=== PATIENT | male | born 1960 | race Caucasian/White ===

== ENCOUNTER 2017-01-05 07:02 | Emergency (ER) | payer BC ==
[2017-01-05 07:16] VITALS: BP 139/72
--- NOTE | 2017-01-05 07:41 | UC ---
Pamela Topete Alok, scribed for Lata Domínguez MD on 01/05/17 at 0732 . Throat Pain/Nasal Eren HPI - HPI Summary HPI Summary: 56 y/o male with PMHx of COPD presents to the with c/o URI-like symptoms including nasal and head congestion settling in chest chest since this weekend. Pt reports a shallow, tickling cough both beginning 4 days ago. Pt states his symptoms feel similar to his last sinus infection some time ago. Sputum from productive cough is described as yellow-white while sputum from nasal is described as clear-yellow. Pt reports taking 2 Mucinex as well as Nyquil for his symptoms which did not better/worsen his symptoms. Pt states his fluid and food intact have been normal. Pt also reports SOB with wheezing that improves with nebs. Pt has been taking nebs 2 times a day. . Pt denies any N/V, vision changes, and has no known allergies. No one else is sick at the pts home and he denies any recent travel. 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 + flu vaccine. No wilkinson, vision changes. No fevers, chills, rash - History of Current Complaint Chief Complaint: UCRespiratory Stated Complaint: SINUS ISSUE Time Seen by Provider: 01/05/17 07:19 Hx Obtained From: Patient Onset/Duration: Gradual Onset Severity: Mild Cough: Productive Associated Signs & Symptoms: Positive: Wheezing, Sinus Discomfort, Nasal Discharge. Negative: Fever, Vomiting, Rash - Allergies/Home Medications Allergies/Adverse Reactions: Allergies Allergy/AdvReac Type Severity Reaction Status Date / Time No Known Allergies Allergy Verified 03/20/14 11:40 Home Medications: Home Medications Montelukast Sodium TAB* [Singulair TAB*] 10 mg PO BEDTIME 01/05/17 [History Confirmed 01/05/17] PMH/Surg Hx/FS Hx/Imm Hx Endocrine History Of: Denies: Diabetes, Thyroid Disease Cardiovascular History Of: Denies: Cardiac Disorders, Hypertension, Myocardial Infarction Respiratory History Of: Reports: COPD, Asthma GI/ History Of: Denies: Ulcer - Surgical History Surgical History: Yes Surgery Procedure, Year, and Place: cholecystectomy - Social History Occupation: Employed Full-time Alcohol Use: Rare Substance Use Type: None Smoking Status (MU): Former Smoker Type: Cigarettes Review of Systems Constitutional: Negative Skin: Negative Eyes: Negative ENT: Nasal Discharge Respiratory: Shortness Of Breath, Cough Cardiovascular: Negative Gastrointestinal: Negative Genitourinary: Negative Motor: Negative Neurovascular: Negative Musculoskeletal: Negative Neurological: Negative Psychological: Negative All Other Systems Reviewed And Are Negative: Yes Physical Exam Triage Information Reviewed: Yes Completion Of Physical Exam Limited Due To: Altered Mental Status Appearance: Well-Appearing, No Pain Distress, Well-Nourished Vital Signs: Initial Vital Signs Temp 98.6 F 01/05/17 07:09 Pulse 93 01/05/17 07:09 Resp 18 01/05/17 07:09 BP 139/72 01/05/17 07:09 Pulse Ox 96 01/05/17 07:09 Vital Signs Reviewed: Yes Eye Exam: Normal Eyes: Positive: Conjunctiva Clear ENT: Positive: Nasal drainage. Negative: Pharynx normal, TMs normal - turbinates inflammed and boggy left ear + fluid, no erythema, no retraction mmmoist + PND - thick yellow + TTP sinuses max R>L; frontal Dental Exam: Normal Neck exam: Normal Neck: Positive: Supple, Nontender, No Lymphadenopathy Respiratory Exam: Normal Respiratory: Positive: Chest non-tender, Lungs clear, Normal breath sounds Cardiovascular Exam: Normal Cardiovascular: Positive: RRR, No Murmur Abdominal Exam: Normal Abdomen Description: Positive: Nontender, No Organomegaly, Soft Musculoskeletal Exam: Normal Neurological Exam: Normal Neurological: Positive: Alert Psychological Exam: Normal Skin Exam: Normal Throat Pain/Nasal Course/Dx - Course Course Of Treatment: PT with a h/o COPD presents with sinus and head congestion , PND, productive yellow cough. VSS. Exam reveal sinus congestion and bogginess. Will treat for sinusitis and early bronchitis. d/w pt secretion hygeine. PCP f/u. increased fluids and neb use. Augmentin, flonase. return prn. Pt in in agreement with plan - Differential Dx/Diagnosis Provider Diagnoses: sinusitis, uri cough Discharge - Discharge Plan Condition: Stable Disposition: HOME Prescriptions: Amoxicillin/Clavulanate TAB* [Augmentin TAB 875*] 875 mg PO BID #20 tab Fluticasone NASAL SPRAY 50MCG* [Flonase NASAL SPRAY 50MCG*] 1 spray BOTH NARES DAILY #1 btl Patient Education Materials: Sinusitis (ED) Referrals: Non Staff,Doctor [Primary Care Provider] - Additional Instructions: - Stay well hydrated. Drink plenty of non-alcoholic, non-caffinated beverages - Take antibioitcs 2 times a day as prescribed until gone. After you have been on antibiotics for 2 days, change your toothbrush and your pillowcase - Okay to use nasal spray daily as instructed - It is recommended you use your nebulizer 3 times a day - Okay to use a decongestant such as Sudafed, Claritin-D, Batool-D -Contact your doctor to schedule a follow-up appointment early next week. Contact your doctor or return with questions or concerns The documentation as recorded by the Pamela arroyo Alok accurately reflects the service I personally performed and the decisions made by me, Lata Domínguez MD.
== END 2017-01-05 07:42 | disposition home or self-care (01) ==
LOC: UCEAST 07:02
DX: J32.9 Chronic sinusitis, unspecified (principal); J06.9 Acute upper respiratory infection, unspecified; Z90.49 Acquired absence of other specified parts of digestive tract; Z87.891 Personal history of nicotine dependence
CPT/HCPCS: 99212; G0463

== ENCOUNTER 2017-03-12 10:21 | Emergency (ER) | payer BC ==
[2017-03-12 11:06] VITALS: BP 139/76
--- NOTE | 2017-03-12 11:19 | UC ---
Lower Extremity/Ankle HPI - HPI Summary HPI Summary: red warm swollen cord inside of right thigh--no know injury - History of Current Complaint Chief Complaint: UCLowerExtremity Stated Complaint: RED PAINFUL AREA ON UPPER LEG Time Seen by Provider: 03/12/17 11:08 Hx Obtained From: Patient Onset/Duration: Sudden Onset, Lasting Days - 1, Still Present Severity Initially: Mild Severity Currently: Mild Pain Intensity: 4 Pain Scale Used: 0-10 Numeric Aggravating Factor(s): Nothing Alleviating Factor(s): Nothing Able to Bear Weight: Yes - Allergies/Home Medications Allergies/Adverse Reactions: Allergies Allergy/AdvReac Type Severity Reaction Status Date / Time No Known Allergies Allergy Verified 03/12/17 11:06 Home Medications: Home Medications Albuterol HFA INHALER* [Ventolin HFA Inhaler*] 2 puff INH Q4HR PRN 03/12/17 [ History Confirmed 03/12/17] PMH/Surg Hx/FS Hx/Imm Hx Previously Healthy: No - superficial blood clots in lower legs Endocrine History Of: Denies: Diabetes, Thyroid Disease Cardiovascular History Of: Denies: Cardiac Disorders, Hypertension, Myocardial Infarction Respiratory History Of: Reports: COPD, Asthma GI/ History Of: Denies: Ulcer - Surgical History Surgical History: Yes Surgery Procedure, Year, and Place: cholecystectomy - Family History Known Family History: Positive: Other Family History: phlebitis - Social History Occupation: Employed Full-time Lives: With Family Alcohol Use: None Substance Use Type: None Smoking Status (MU): Former Smoker Type: Cigarettes When Did the Patient Quit Smoking/Using Tobacco: 2006 Household Exposure Type: Cigarettes Review of Systems Constitutional: Negative Skin: Negative Eyes: Negative ENT: Negative Respiratory: Negative Cardiovascular: Negative Gastrointestinal: Negative Genitourinary: Negative Motor: Negative Neurovascular: Negative Musculoskeletal: Negative, Myalgia - inside of right thigh Neurological: Negative Psychological: Negative All Other Systems Reviewed And Are Negative: Yes Physical Exam Triage Information Reviewed: Yes Appearance: Well-Appearing, No Pain Distress, Well-Nourished Vital Signs: Initial Vital Signs Temp 97.9 F 03/12/17 11:02 Pulse 73 03/12/17 11:02 Resp 14 03/12/17 11:02 BP 139/76 03/12/17 11:02 Pulse Ox 95 03/12/17 11:02 Vital Signs Reviewed: Yes Eye Exam: Normal Eyes: Positive: Conjunctiva Clear ENT Exam: Normal ENT: Positive: Normal ENT inspection, Hearing grossly normal. Negative: Nasal congestion, Nasal drainage, Trismus, Muffled/hoarse voice Dental Exam: Normal Neck exam: Normal Neck: Positive: Supple, Nontender, No Lymphadenopathy Respiratory Exam: Normal Respiratory: Positive: Chest non-tender, Lungs clear, Normal breath sounds, No respiratory distress, No accessory muscle use Cardiovascular Exam: Normal Cardiovascular: Positive: RRR, No Murmur, Pulses Normal, Brisk Capillary Refill Musculoskeletal Exam: Normal Musculoskeletal: Positive: Strength Intact, ROM Intact, Edema @ - chronic in BLE Neurological Exam: Normal Neurological: Positive: Alert, Muscle Tone Normal Psychological Exam: Normal Skin Exam: Normal Lower Extremity Course/Dx - Course Course Of Treatment: transfer to [facility] for further evaluation/US - Differential Dx/Diagnosis Differential Diagnosis/HQI/PQRI: Cellulitis, DVT, Phlebitis Provider Diagnoses: Swelling inner right thigh - Physician Notifications Discussed Patient Care With: Paulie LAY Time Discussed With Above Provider: 11:30 Instructed by Provider To: Transfer Discharge - Discharge Plan Condition: Stable Disposition: AGAINST MEDICAL ADVICE Referrals: Non Staff,Doctor [Primary Care Provider] -
== END 2017-03-12 11:21 | disposition left against medical advice (07) ==
LOC: UCEAST 10:21
DX: M79.89 Other specified soft tissue disorders (principal); J44.9 Chronic obstructive pulmonary disease, unspecified; Z87.891 Personal history of nicotine dependence
CPT/HCPCS: 99212; G0463

== ENCOUNTER 2017-03-12 11:42 | Emergency (ER) | payer BC ==
[2017-03-12 12:30] VITALS: BP 142/76
--- NOTE | 2017-03-12 13:39 | RAD ---
INDICATION: Right thigh swelling and pain. COMPARISON: Correlation is made with a prior study from March 02, 2013 TECHNIQUE: Multiple real-time, color flow and Doppler tracings of the right lower extremity were obtained. FINDINGS: The common femoral, femoral, profunda femoral and popliteal veins all demonstrate normal compressibility, augmentation with compression and phasic response with respiration. The posterior tibial and peroneal veins demonstrate normal compressibility and augmentation with compression. There is occlusive thrombus present within the greater saphenous vein from the proximal to distal thigh. IMPRESSION: SUPERFICIAL VENOUS THROMBUS WITHIN THE GREATER SAPHENOUS VEIN.
[2017-03-12] MEDS ORDERED: Enoxaparin(*) 100 MG/ML SYR SUBCUT ONE (13:53)
--- NOTE | 2017-03-12 14:05 | ED ---
Lower Extremity - HPI Summary HPI Summary: Patient is referred from [facility] for right upper thigh redness, and pain since yesterday. He has a history of DVT in his lower extremities and worries this has occurred again. He has pain with walking. No SOB, CP, swelling or N/T in the extremity. No fever or chills, and no known trauma. - History of Current Complaint Chief Complaint: EDExtremityLower Stated Complaint: RIGHT LEG SWELLING, COMMING FROM Time Seen by Provider: 03/12/17 12:16 Hx Obtained From: Patient Mechanism Of Injury: Unknown Onset of Pain: Hours Onset/Duration: Still Present Severity Initially: Mild Severity Currently: Mild Pain Intensity: 3 Timing: Constant Location: Is Discrete @ - right upper thigh Character Of Pain: Aching Associated Signs And Symptoms: Positive: Redness Aggravating Factor(s): Standing Alleviating Factor(s): Nothing Able to Bear Weight: Yes - Allergies/Home Medications Allergies/Adverse Reactions: Allergies Allergy/AdvReac Type Severity Reaction Status Date / Time No Known Allergies Allergy Verified 03/12/17 11:06 PMH/Surg Hx/FS Hx/Imm Hx Endocrine/Hematology History: Reports: Hx Anticoagulant Therapy Denies: Hx Diabetes, Hx Thyroid Disease Cardiovascular History: Reports: Hx Angina, Hx Deep Vein Thrombosis Denies: Hx Coronary Artery Disease, Hx Hypercholesterolemia, Hx Hypertension , Hx Myocardial Infarction Respiratory History: Reports: Hx Asthma, Hx Chronic Obstructive Pulmonary Disease (COPD) GI History: Denies: Hx Ulcer - Surgical History Surgery Procedure, Year, and Place: cholecystectomy Infectious Disease History: No Infectious Disease History: Denies: Hx Hepatitis, Hx Human Immunodeficiency Virus (HIV), History Other Infectious Disease, Traveled Outside the [place] in Last 30 Days - Family History Known Family History: Positive: None - Social History Occupation: Employed Full-time Lives: With Family Alcohol Use: None Substance Use Type: Reports: None Smoking Status (MU): Former Smoker Type: Cigarettes Review of Systems Negative: Fever, Chills Positive: Myalgia - with erythema All Other Systems Reviewed And Are Negative: Yes Physical Exam Triage Information Reviewed: Yes Vital Signs On Initial Exam: Initial Vitals Temp Pulse Resp BP Pulse Ox 97.4 F 82 18 160/87 98 03/12/17 11:48 03/12/17 11:48 03/12/17 11:48 03/12/17 11:48 03/12/17 11:48 Vital Signs Reviewed: Yes Appearance: Positive: Well-Appearing, Pain Distress, Obese Skin: Positive: Warm, Skin Color Reflects Adequate Perfusion, Dry, Soft, Erythema @ - right thigh eythema corresponding with saphenous vein Head/Face: Positive: Normal Head/Face Inspection Eyes: Positive: EOMI, VALORIE, Conjunctiva Clear Respiratory/Lung Sounds: Positive: Clear to Auscultation, Breath Sounds Present Cardiovascular: Positive: RRR Musculoskeletal: Positive: Strength/ROM Intact. Negative: Edema Left, Edema Right Neurological: Positive: Sensory/Motor Intact, Alert, Oriented to Person Place, Time, NV Bundle Intact Distally, Normal Gait Psychiatric: Positive: Affect/Mood Appropriate AVPU Assessment: Alert Diagnostics - Vital Signs Vital Signs Temp Pulse Resp BP Pulse Ox 03/12/17 12:27 99.1 F 75 18 142/76 96 03/12/17 11:48 97.4 F 82 18 160/87 98 - Laboratory Lab Statement: Any lab studies that have been ordered have been reviewed, and results considered in the medical decision making process. - Ultrasound No standard instances Ultrasound Interpretation: Positive (See Comments) Ultrasound Interpretation Completed By: Radiologist - Superficial vein thrombosis right saphenous vein. Lower Extremity Course/Dx - Diagnoses Differential Diagnosis/HQI/PQRI: Positive: Cellulitis, Contusion, DVT, Gout, Infection, Phlebitis, Tendonitis, Tenosynovitis Provider Diagnoses: Acute superficial venous thrombosis of right lower extremity Discharge - Discharge Plan Condition: Stable Disposition: HOME Prescriptions: Enoxaparin(*) [Lovenox(*)] 100 mg SUBCUT Q12HR #10 syringe Enoxaparin(*) [Lovenox(*)] 40 mg SUBCUT Q12HR #10 syringe Patient Education Materials: Superficial Thrombophlebitis (ED) Additional Instructions: Please follow-up with your primary care provider in the next 1-2 days. Use the medication as prescribed until instructed otherwise. Return to the emergency department if symptoms worsen.
== END 2017-03-12 14:20 | disposition home or self-care (01) ==
LOC: ED 11:42
DX: I82.811 Embolism and thrombosis of superficial veins of right lower extremity (principal); M79.1 Myalgia; Z87.891 Personal history of nicotine dependence
CPT/HCPCS: 99282; J1650

== ENCOUNTER 2017-12-15 06:55 | Emergency (ER) | payer SELFPAY ==
[2017-12-15 08:05] LABS: INR 1.87 (0.77-1.02)
[2017-12-15 08:29] VITALS: BP 143/71
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
== END 2017-12-15 08:28 | disposition home or self-care (01) ==
LOC: ED 06:55
DX: M25.512 Pain in left shoulder (principal); S60.211A Contusion of right wrist, initial encounter; V89.2XXA Person injured in unspecified motor-vehicle accident, traffic, initial encounter; Y92.9 Unspecified place or not applicable; Z79.01 Long term (current) use of anticoagulants; Z87.891 Personal history of nicotine dependence; J44.9 Chronic obstructive pulmonary disease, unspecified; Z86.718 Personal history of other venous thrombosis and embolism
CPT/HCPCS: 36415; 85610; 99282

== ENCOUNTER 2018-05-27 18:24 | Emergency (ER) | payer BC ==
--- NOTE | 2018-05-27 19:30 | ED ---
Lower Extremity - HPI Summary HPI Summary: This is scribe Lashaandre Santiago documenting for attending Dr. Emmanuel Arteaga MD. A 58 y/o male presents to ED c/o soreness, tenderness and redness under his knee coupled with pain reaching 3/10 in severity. As per triage, "Pt c/o L leg pain and redness. Pt states hx DVT's and has just been taken off of blood thinners". According to the patient, two months ago the patient was taken off Warfarin which is when he noted soreness and tenderness under his left knee and swelling in legs. He noted that he thromboses easily. He denies any CP, nausea or vomiting, however he does have slight SOB as he has COPD. PMHx of COPD and psoriasis. 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 - History of Current Complaint Chief Complaint: EDExtremityLower Stated Complaint: LT LEG PAIN Time Seen by Provider: 05/27/18 19:12 Hx Obtained From: Patient Mechanism Of Injury: Unknown Onset/Duration: Still Present Severity Initially: Moderate Severity Currently: Moderate Pain Intensity: 3 Pain Scale Used: 0-10 Numeric Timing: Constant Location: Is Discrete @ - Under left knee Associated Signs And Symptoms: Positive: Swelling, Redness, Knee Pain - Under knee pain Aggravating Factor(s): Nothing Alleviating Factor(s): Nothing Able to Bear Weight: Yes - Allergies/Home Medications Allergies/Adverse Reactions: Allergies Allergy/AdvReac Type Severity Reaction Status Date / Time No Known Allergies Allergy Verified 12/15/17 07:21 PMH/Surg Hx/FS Hx/Imm Hx Endocrine/Hematology History: Reports: Hx Anticoagulant Therapy Denies: Hx Diabetes, Hx Thyroid Disease Cardiovascular History: Reports: Hx Angina, Hx Deep Vein Thrombosis Denies: Hx Coronary Artery Disease, Hx Hypercholesterolemia, Hx Hypertension , Hx Myocardial Infarction Respiratory History: Reports: Hx Asthma, Hx Chronic Obstructive Pulmonary Disease (COPD) GI History: Denies: Hx Ulcer - Surgical History Surgery Procedure, Year, and Place: cholecystectomy Infectious Disease History: No Infectious Disease History: Denies: Hx Hepatitis, Hx Human Immunodeficiency Virus (HIV), History Other Infectious Disease, Traveled Outside the [place] in Last 30 Days - Family History Known Family History: Negative: Cardiac Disease Family History: [place] - Social History Alcohol Use: None Substance Use Type: Reports: None Smoking Status (MU): Former Smoker Type: Cigarettes Review of Systems Negative: Fever Negative: Chest Pain Positive: Shortness Of Breath - Slight due to COPD Negative: Vomiting, Nausea Positive: Other - POSITIVE: Tenderness and soreness under left knee, swelling in legs. Positive: Other - POSITIVE: Redness under left knee All Other Systems Reviewed And Are Negative: Yes Physical Exam - Summary Physical Exam Summary: VITAL SIGNS: Reviewed. GENERAL: Patient is a well-developed and nourished (MALE OR FEMALE) who is lying comfortable in the stretcher. Patient is not in any acute respiratory distress. HEAD AND FACE: No signs of trauma. No ecchymosis, hematomas or skull depressions. No sinus tenderness. EYES: PERRLA, EOMI x 2, No injected conjunctiva, no nystagmus. EARS: Hearing grossly intact. Ear canals and tympanic membranes are within normal limits. MOUTH: Oropharynx within normal limits. NECK: Supple, trachea is midline, no adenopathy, no JVD, no carotid bruit, no c- spine tenderness, neck with full ROM. CHEST: Symmetric, no tenderness at palpation LUNGS: Clear to auscultation bilaterally. No wheezing or crackles. CVS: Regular rate and rhythm, S1 and S2 present, no murmurs or gallops appreciated. ABDOMEN: Soft, non-tender. No signs of distention. No rebound no guarding, and no masses palpated. Bowel sounds are normal. EXTREMITIES: FROM in all major joints, no edema, no cyanosis or clubbing. Tenderness in the left distal thigh with slight erythema +1. NEURO: Alert and oriented x 3. No acute neurological deficits. Speech is normal and follows commands. SKIN: Skin plax on left forearm with desquamation secondary to his psoriasis. Triage Information Reviewed: Yes Vital Signs On Initial Exam: Initial Vitals Temp Pulse Resp BP Pulse Ox 97.9 F 95 18 165/73 94 05/27/18 18:26 05/27/18 18:26 05/27/18 18:26 05/27/18 18:26 05/27/18 18:26 Vital Signs Reviewed: Yes Diagnostics - Vital Signs Vital Signs Temp Pulse Resp BP Pulse Ox 05/27/18 18:26 97.9 F 95 18 165/73 94 - Laboratory Result Diagrams: 05/27/18 19:29 05/27/18 19:29 Lab Statement: Any lab studies that have been ordered have been reviewed, and results considered in the medical decision making process. - Ultrasound No standard instances Ultrasound Interpretation Completed By: Radiologist - 1. No left lower extremity DVT. 2. Great saphenous vein occlusion at the distal thigh and knee. ED physician reviewed this radiology report. Lower Extremity Course/Dx - Course Assessment/Plan: This patient is a 50-year-old male who presents to the emergency department with a chief complaint of left lower extremity pain especially in the left thigh area. The patient has history of DVT therefore he decided to come to the emergency department to rule out DVT. Test results without any significant abnormality. Ultrasound of the left lower history is negative for DVT. Therefore at this time had a will be discharging the patient home with follow-up with primary care physician. The patient is hemodynamically stable alert and 3. I discussed all the findings and test results with the patient. Patient was instructed to return to the emergency room immediately if any of the symptoms return or worsens. Plan of care was discussed with the patient and understands and agrees. All questions were answered at patient satisfaction. There were no further complaints or concerns. Lung exam before discharge: CTA B/L. Good air exchange. No wheezing or crackles heard. CVS: S1 and S2 present. No murmurs appreciated. Patient is alert and oriented x 3. Patient is hemodynamically stable. Patient will be discharged home with follow up PCP in the next 2-3 days - Diagnoses Differential Diagnosis/HQI/PQRI: Positive: Bursitis, Cellulitis, DVT Provider Diagnoses: Lower extremity pain Discharge - Sign-Out/Discharge Documenting (check all that apply): Patient Departure - DISCHARGE - Discharge Plan Condition: Stable Disposition: HOME Patient Education Materials: Leg Pain (ED) Referrals: Alpesh NEWMAN,Jose Raymundo [Primary Care Provider] - Additional Instructions: FOLLOW UP WITH YOUR PRIMARY CARE PROVIDER WITHIN ONE WEEK FOR HIGH BLOOD PRESSURE NOTED TODAY.RETURN TO THE ED FOR ANY WORSENING OR NEW SYMPTOMS.
[2018-05-27 19:38] LABS: ABS Basophils 0.1 10^3/ul (0-0.2); ABS Eosinophils 0.2 10^3/ul (0-0.6); ABS Lymphocytes 1.2 10^3/ul (1.0-4.8); ABS Monocytes 0.6 10^3/ul (0-0.8); ABS Neutrophils 3.8 10^3/ul (1.5-7.7); ABS Nucleated RBC 0 10^3/ul; Eosinophil % 3.4 % (0-6); Hematocrit 42 % (42-52); Hemoglobin 14.7 g/dl (14.0-18.0); Lymphocyte % 19.9 % (25-47); Mean Corpuscular HGB Conc 35 g/dl (31-36); Mean Corpuscular Hemoglobin 31 pg (27-31); Mean Corpuscular Volume 90 fL (80-94); Mean Platelet Volume 8.1 um3 (7.4-10.4); Nucleated Red Blood Cells % 0.1; Platelet Count 192 10^3/ul (150-450); Red Blood Count 4.68 10^6/ul (4.00-5.40); Red Cell Distribution Width 14 % (10.5-15); White Blood Count 5.9 10^3/ul (3.5-10.8)
[2018-05-27 20:00] LABS: Uric Acid 6.3 mg/dL (4.4-7.6)
[2018-05-27 21:00] LABS: EGFR Non-African American 72.5 (>60)
--- NOTE | 2018-05-27 21:21 | RAD ---
INDICATION: Pain and swelling. COMPARISON: April 05, 2018 TECHNIQUE: Duplex interrogation of the Lowerextremity was performed. FINDINGS: Deep veins: The common femoral, great saphenous, profunda femoris, proximal, mid, and distal deep femoral, popliteal, posterior tibial, and peroneal veins are patent. There is normal compressibility, augmentation, and phasic flow. Superficial veins: There is occlusion of the great saphenous at the distal thigh and knee. Popliteal fossa:There is no evidence of a popliteal cyst. Soft tissues:There are no soft tissue abnormalities. IMPRESSION: NO EVIDENCE OF DEEP VENOUS THROMBOSIS. SUPERFICIAL THROMBOPHLEBITIS
[2018-05-27 21:30] VITALS: BP 148/77
== END 2018-05-27 21:27 | disposition home or self-care (01) ==
LOC: ED 18:24
DX: M25.562 Pain in left knee (principal); R06.02 Shortness of breath; Z87.891 Personal history of nicotine dependence
CPT/HCPCS: 36415; 80053; 84550; 85025; 86140; 99282

== ENCOUNTER 2018-09-15 16:24 | Emergency (ER) | payer BC ==
[2018-09-15 16:43] VITALS: BP 122/75
--- NOTE | 2018-09-15 17:07 | UC ---
Throat Pain/Nasal Eren HPI - HPI Summary HPI Summary: 58 y/o female presents to the urgent care c/o Rt side face congestion, pressure and sinus pain w/ Rt ear pain for the past week. Pt states PMHX of COPD and he feels his symptoms are not improving and now producing a yellowish nasal discharge and +PND w/ a dry cough. Pain is 5/10. Pt is taking Mucinex sinus PO w/o any improvement. Pt denies fever, dizziness, SOB, chest pain, abdominal pain ,N/v/D. - History of Current Complaint Chief Complaint: UCGeneralIllness Stated Complaint: SINUS COMPLAINT Time Seen by Provider: 09/15/18 16:58 Hx Obtained From: Patient Onset/Duration: Gradual Onset, Lasting Weeks - 1 week, Still Present, Worse Since - 3 days Severity: Mild Pain Intensity: 5 Pain Scale Used: 0-10 Numeric Cough: Nonproductive - dry Associated Signs & Symptoms: Positive: Sinus Discomfort, Nasal Discharge - Epiglottits Risk Factors Epiglottis Risk Factors: Negative - Allergies/Home Medications Allergies/Adverse Reactions: Allergies Allergy/AdvReac Type Severity Reaction Status Date / Time No Known Allergies Allergy Verified 09/15/18 16:44 PMH/Surg Hx/FS Hx/Imm Hx Previously Healthy: Yes Respiratory History: COPD Other History Of: Anticoagulant Therapy - Surgical History Surgical History: Yes Surgery Procedure, Year, and Place: cholecystectomy - Family History Known Family History: Positive: None - Pt denies FMHX Negative: Cardiac Disease Family History: [place] - Social History Occupation: Employed Full-time Lives: With Family Alcohol Use: None Substance Use Type: None Smoking Status (MU): Former Smoker Type: Cigarettes When Did the Patient Quit Smoking/Using Tobacco: 2006 Household Exposure Type: Cigarettes Review of Systems All Other Systems Reviewed And Are Negative: Yes Constitutional: Positive: Negative Skin: Positive: Negative Eyes: Positive: Negative ENT: Positive: Ear Ache - RT ear pain, Nasal Discharge, Sinus Congestion, Sinus Pain/Tenderness Respiratory: Positive: Cough - dry Cardiovascular: Positive: Negative Gastrointestinal: Positive: Negative Genitourinary: Positive: Negative Motor: Positive: Negative Neurovascular: Positive: Negative Musculoskeletal: Positive: Negative Neurological: Positive: Headache Psychological: Positive: Negative Is Patient Immunocompromised?: No Physical Exam - Summary Physical Exam Summary: Vitals: reviewed General: Well developed, well-nourished obese male patient with NAD. Head and face: Normocephalic and atraumatic, Positive tenderness over the frontal and maxillary sinuses.. Eyes: PERRLA, EOMI x 2. Normal conjunctiva. No eye discharge. ENT: RT ear canal clear, Rt TM injectect w/ erythema and mild fluid. LF external ear canal clear, LF TM with normal limits. Nose: edematous and erythematous nasal mucosa with with yellowish discharge and erythematous mucosa. Pharynx with erythema, no exudate. Neck: Supple, no JVD, no carotid bruits and no lymphadenopathy. Lungs: clear, no rales, no rhonchi, no wheezes. CVS: RRR, S1 and S2 present no murmurs or gallops appreciated. Abdomen: soft nontender with positive bowel sounds. Extremities: no edema noted. Neuro: WNL. Skin: warm and dry Triage Information Reviewed: Yes Vital Signs: Initial Vital Signs Temp 97.6 F 09/15/18 16:36 Pulse 92 09/15/18 16:36 Resp 16 09/15/18 16:36 BP 122/75 09/15/18 16:36 Pulse Ox 95 09/15/18 16:36 Throat Pain/Nasal Course/Dx - Course Course Of Treatment: 58 y/o female presents to the urgent care c/o Rt side face congestion, pressure and sinus pain w/ Rt ear pain for the past week. Pt states PMHX of COPD and he feels his symptoms are not improving and now producing a yellowish nasal discharge and +PND w/ a dry cough. Pain is 5/10. Pt is taking Mucinex sinus PO w/o any improvement. Pt denies fever, dizziness, SOB, chest pain, abdominal pain,N/v/D.Hx obtained. Pt w/ acute bacterial sinusitis and RT otitis media on examination. Pt with 1 week of symptoms getting worse. Pt Rx Augmentin PO and flonase nasal spray. Advised to continue takin MUcinex PO for cough. Discharge instructions explained to Pt. Advised to Return to the clinic or PCP if symptoms do not improve.Pt understood and agreed with plan of care. - Differential Dx/Diagnosis Differential Diagnosis/HQI/PQRI: Laryngitis, Otitis Media, Pharyngitis, Tonsillitis, URI Provider Diagnoses: 1- Acute bacterila sinusitis. 2- Rt otitis media Discharge - Sign-Out/Discharge Documenting (check all that apply): Patient Departure - D/c home All imaging exams completed and their final reports reviewed: No Studies - Discharge Plan Condition: Stable Disposition: HOME Prescriptions: Amoxicillin/Clavulanate TAB* [Augmentin TAB 875*] 875 mg PO BID #20 tab Fluticasone NASAL SPRAY 50MCG* [Flonase NASAL SPRAY 50MCG*] 2 spray BOTH NARES DAILY #1 btl Patient Education Materials: Sinusitis (ED), Ear Infection (ED) Referrals: Alpesh NEWMAN,Jose Raymundo [Primary Care Provider] - 3 Days Additional Instructions: 1- Please increase fluid intake and rest. take full course of antibiotic to avoid resistance 2-Use Flonase as directed to help drain fluid. Also buy saline drops to clear sinuses 3-contineu taking Mucinex and sinus to alleviates sinus congestion 4-Return to the clinic or PCP if symptoms do not improve in 3 days for further management and treatment - Billing Disposition and Condition Condition: STABLE Disposition: Home - Attestation Statements Provider Attestation: Per institutional requirements, I have reviewed the chart, however, I was not consulted specifically or made aware of this patient by the midlevel provider. I did not personally evaluate, interact with , or disposition this patient.
== END 2018-09-15 17:37 | disposition home or self-care (01) ==
LOC: UCEAST 16:24
DX: J01.90 Acute sinusitis, unspecified (principal); B96.89 Other specified bacterial agents as the cause of diseases classified elsewhere; H66.91 Otitis media, unspecified, right ear; J44.9 Chronic obstructive pulmonary disease, unspecified; Z87.891 Personal history of nicotine dependence
CPT/HCPCS: 99212; G0463

== ENCOUNTER 2019-03-27 12:04 | Emergency (ER) | payer BC ==
--- NOTE | 2019-03-27 12:20 | ED ---
Lower Extremity - HPI Summary HPI Summary: Pt is a 58 y/o M presenting to the ED with a chief complaint of R knee pain onset last week when he twisted it. He states he cannot put weight on it, and reports associated decreased ROM. He denies falling or fever. - History of Current Complaint Chief Complaint: EDExtremityLower Stated Complaint: RIGHT KNEE INJ PER PT Time Seen by Provider: 03/27/19 12:13 Hx Obtained From: Patient Mechanism Of Injury: Twisted Onset of Pain: Immediate, Days Onset/Duration: Days Severity Initially: Moderate Severity Currently: Moderate Pain Intensity: 5 Pain Scale Used: 0-10 Numeric Timing: Constant, Lasting Days Location: Is Discrete @ - R knee Character Of Pain: Aching Associated Signs And Symptoms: Positive: Knee Pain. Negative: Fever Aggravating Factor(s): Weight Bearing Alleviating Factor(s): Nothing Able to Bear Weight: No - Allergies/Home Medications Allergies/Adverse Reactions: Allergies Allergy/AdvReac Type Severity Reaction Status Date / Time No Known Allergies Allergy Verified 03/27/19 12:10 Home Medications: Home Medications Umeclidinium Jewett [Incruse Ellipta] 1 puff INHH DAILY 03/27/19 [History Confirmed 03/27/19] PMH/Surg Hx/FS Hx/Imm Hx Previously Healthy: No Endocrine/Hematology History: Reports: Hx Anticoagulant Therapy Denies: Hx Diabetes, Hx Thyroid Disease Cardiovascular History: Reports: Hx Angina, Hx Deep Vein Thrombosis Denies: Hx Coronary Artery Disease, Hx Hypercholesterolemia, Hx Hypertension , Hx Myocardial Infarction Respiratory History: Reports: Hx Asthma, Hx Chronic Obstructive Pulmonary Disease (COPD) GI History: Denies: Hx Ulcer - Surgical History Surgery Procedure, Year, and Place: cholecystectomy Infectious Disease History: No Infectious Disease History: Denies: Hx Hepatitis, Hx Human Immunodeficiency Virus (HIV), History Other Infectious Disease, Traveled Outside the [place] in Last 30 Days - Family History Known Family History: Negative: Cardiac Disease Family History: [place] - Social History Alcohol Use: None Hx Substance Use: No Substance Use Type: Reports: None Hx Tobacco Use: Yes Smoking Status (MU): Former Smoker Type: Cigarettes Review of Systems Negative: Fever Positive: Myalgia, Decreased ROM, Other - fall All Other Systems Reviewed And Are Negative: Yes Physical Exam - Summary Physical Exam Summary: Appearance: Well appearing, no pain distress Skin: warm, dry, reflects adequate perfusion Head/face: normal Eyes: EOMI, VALORIE ENT: normal Neck: supple, non-tender Respiratory: CTA, breath sounds present Cardiovascular: RRR, pulses symmetrical Abdomen: non-tender, soft Musculoskeletal: Tenderness and edema to R knee with restricted ROM. No neurovascular deficit. Neuro: normal, sensory motor intact, A&Ox3 Triage Information Reviewed: Yes Vital Signs On Initial Exam: Initial Vitals Temp Pulse Resp BP Pulse Ox 97.8 F 92 18 135/85 95 03/27/19 12:07 03/27/19 12:07 03/27/19 12:07 03/27/19 12:07 03/27/19 12:07 Vital Signs Reviewed: Yes Diagnostics - Vital Signs Vital Signs Temp Pulse Resp BP Pulse Ox 03/27/19 12:07 97.8 F 92 18 135/85 95 - Laboratory Lab Statement: Any lab studies that have been ordered have been reviewed, and results considered in the medical decision making process. - Radiology Knee XR Radiology Interpretation Completed By: Radiologist Summary of Radiographic Findings: Osteoarthritis. No acute osseous injury. If symptoms persist, recommend repeat imaging. ED physician has reviewed this report. Lower Extremity Course/Dx - Course Course Of Treatment: Pt is a 58 y/o M presenting to the ED with a chief complaint of R knee pain onset last week when he twisted it. He states he cannot put weight on it, and reports associated decreased ROM. He denies falling or fever. Knee XR shows osteoarthritis, but no acute knee injury. If sx persist, repeat imaging is recommended. Pt will be d/c'ed with a dx of knee effusion and knee sprain, with instructions to follow up with orthopedics. He is stable and agreeable with this plan. - Diagnoses Differential Diagnosis/HQI/PQRI: Positive: Fracture (Closed), Sprain, Strain Provider Diagnoses: Knee sprain, Knee effusion Discharge - Sign-Out/Discharge Documenting (check all that apply): Patient Departure Patient Received Moderate/Deep Sedation with Procedure: No - Discharge Plan Condition: Stable Disposition: HOME Prescriptions: Ibuprofen TAB* [Motrin TAB* 600 MG] 600 mg PO Q8H PRN #15 tab MDD 3 PRN Reason: Pain Referrals: Pepe Delarosa MD [Primary Care Provider] - Miguel Fernandez MD [Medical Doctor] - Additional Instructions: Please follow up with Dr. Bryan of orthopedics within the next 2-3 days. Return to the emergency department with any new or worsening symptoms. - Billing Disposition and Condition Condition: STABLE Disposition: Home - Attestation Statements Document Initiated by Remy: Yes Documenting Scribe: Yoselin Jimenez Provider For Whom Remy is Documenting (Include Credential): Carlos A Thomson MD. Scribe Attestation: Yoselin Topete, darrylibed for Carlos A Thomson MD. on 03/27/19 at 1428. Scribe Documentation Reviewed: Yes Provider Attestation: The documentation as recorded by the Yoselin arroyo accurately reflects the service I personally performed and the decisions made by , Carlos A Thomson MD. Status of Scribe Document: Viewed
--- OUTSIDE RECORDS SUMMARY | 2019-03-27 12:21 | XMS REPORT | Continuity of Care Document ---
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 Jose Betts MD Primary Care Physician Unavailable Payers Date Identification Numbers Payment Provider Subscriber Policy Number: [id number] [employer] Amber Glasgow PayID: [id number] [address] [address] [place] [address] Problems Active Problems Provider Date Uncomplicated moderate persistent asthma Timoteo Valiente RPA-C Onset: 2018 Allergic rhinitis Timoteo Valiente RPA-C Onset: 03/14/2019 Allergic rhinitis due to pollen Timoteo Valiente RPA-C Onset: 03/14/2019 Social History Type Date Description Comments Sex Unknown Smoke-Free Home is smoke-free Pets 2 dogs Tobacco Use Start: Unknown End: Unknown Patient is a former smoker Smoking Status Reviewed: 03/14/19 Patient is a former smoker Allergies, Adverse Reactions, Alerts Description No Known Drug Allergies Medications Active Medications SIG Qnty Indications Ordering Provider Date Breo Ellipta Unknown 200-25mcg/Inh Aerosol Incruse Ellipta Unknown 62.5mcg/Inh Aerosol Montelukast Sodium Laura Foss 10mg PA Tablets Wellbutrin XL Unknown 300mg Tablets ER 24HR Ventolin HFA Inhale 2 Puffs By Unknown 108(90Base) Mouth Every 4 To mcg/Act Aerosol 6 Hours as Needed Ipratropium Unknown [place]/Albuterol Sulfate 0.5-2.5(3)mg/3ML Solution Olopatadine HCL Place 1 Drop Into Unknown 0.2% Affected Eye Solution Twice Daily Bupropion Hydrochloride Take 1 Tablet By Unknown ER (XL) Mouth In The 150mg Tablets ER Morning 24HR History Medications Warfarin Sodium Unknown - 5mg Tablets 03/14/2019 Triamcinolone Acetonide Kirti Lara - 0.1% 03/14/2019 Cream Aplenzin Unknown - 522mg Tablets ER 03/14/2019 24HR Amoxicillin/Clavulanate Take 1 Tablet By Unknown - Potassium Mouth Twice A Day 03/14/2019 875-125mg Tablets For 10 Days Fluticasone Propionate [place] 2 Sprays In Unknown - Both Nostril Once 03/14/2019 50mcg/Act Suspension Daily Benzonatate Take 1-2 Capsules Unknown - 100mg Capsules By Mouth 3 Times 03/14/2019 Daily as Needed For Acute Cough Sildenafil Citrate Buechner, Laura - 100mg PA 03/14/2019 Tablets Symbicort Buechner, Laura - 160-4.5mcg/Act PA 03/14/2019 Aerosol Spiriva Handihaler [facility] - 18mcg PA 03/14/2019 Capsules Prednisone Take 2 Tabs By Unknown - 10mg Tablets Mouth Daily For 1 03/14/2019 Week, Then 1 Tab Daily For 1 Week, Then 1/2 Tab Daily 2 For Weeks Prednisone Unknown - 5mg Tablets 03/14/2019 Vital Signs Date Vital Result Comment 03/14/2019 1:54pm BP Systolic 121 mmHg BP Diastolic 71 mmHg Height 75 inches 6'3" Weight 310.00 lb BMI (Body Mass Index) 38.7 kg/m2 Heart Rate 82 /min Respiratory Rate 17 /min O2 % BldC Oximetry 93 % Procedures Date Code Description Status 03/19/2019 56127 Allergy Antigens Single Or Multiple Completed Encounters Type Date Location Provider Dx Diagnosis Office Visit 03/14/2019 Timoteo Cummings RPA-C J30.1 Allergic rhinitis due 2:00p to pollen J30.89 Other allergic rhinitis J45.40 Moderate persistent asthma, uncomplicated Plan of Treatment 03/14/2019 - Timoteo Valiente RPA-CJ30.1 Allergic rhinitis due to pollenComments: Patient will continue allergy immunotherapy with the same allergy serums but made by this office. Will decrease dose for safety reasons and continue weekly intervals until back to maintenance dose. Patient understands and agrees to do so.Patient to receive allergy immunotherapy at the [place] office.Will continue to have Pulmonology follow patient for his asthma/COPD.Try any over the counter non-sedating antihistamine as needed for breakthrough symptoms.Follow up:6 months, sooner as [id number] Other allergic [id number] Moderate persistent asthma, uncomplicated
--- OUTSIDE RECORDS SUMMARY | 2019-03-27 12:21 | XMS REPORT | Continuity of Care Document ---
:1960 External Reference #:[id number] Author Name Paul Zuniga MD Address [address] [place] [address] Care Team Providers Name Role Phone [facility] Care Team Information Seismograph Recorder Unavailable Jose Betts MD Primary Care Physician Unavailable Payers Date Identification Numbers Payment Provider Subscriber Policy Number: [id number] BS [employer] Amber Glasgow PayID: [id number] [address] [address] [place] [address] Advance Directives Description No Information Available Problems Active Problems Provider Date Uncomplicated moderate persistent asthma Timoteo Valiente RPA-C Onset: 2018 Allergic rhinitis Timoteo Valiente RPA-C Onset: 03/14/2019 Allergic rhinitis due to pollen Timoteo Valiente RPA-C Onset: 03/14/2019 Family History Description No Information Available Social History Type Date Description Comments Sex [...] Aerosol 6 Hours as Needed Ipratropium Unknown Dana/Albuterol Sulfate 0.5-2.5(3)mg/3ML Solution Olopatadine HCL Place 1 Drop Into Unknown 0.2% Affected Eye Solution Twice Daily Bupropion Hydrochloride Take 1 Tablet By Unknown ER (XL) Mouth In The 150mg Tablets ER Morning 24HR History Medications Warfarin Sodium Unknown - 5mg Tablets 03/14/2019 Triamcinolone Acetonide Monique Larah - 0.1% 03/14/2019 Cream Aplenzin Unknown - 522mg Tablets ER 03/14/2019 24HR Amoxicillin/Clavulanate Take 1 Tablet By Unknown - Potassium Mouth Twice A Day 03/14/2019 875-125mg Tablets For 10 Days Fluticasone Propionate [place] 2 Sprays In Unknown - Both Nostril Once 03/14/2019 50mcg/Act Suspension Daily Benzonatate Take 1-2 Capsules Unknown - 100mg Capsules By Mouth 3 Times 03/14/2019 Daily as Needed For Acute Cough Sildenafil Citrate [facility], [facility] - 100mg PA 03/14/2019 Tablets Symbicort echner, Laura - 160-4.5mcg/Act PA 03/14/2019 Aerosol Spiriva Handihaler [facility], [facility] - 18mcg PA 03/14/2019 Capsules Prednisone Take 2 Tabs By Unknown - 10mg Tablets Mouth Daily For 1 03/14/2019 Week, Then 1 Tab Daily For 1 Week, Then 1/2 Tab Daily 2 For Weeks Prednisone Unknown - 5mg Tablets 03/14/2019 Immunizations Description No Information Available Vital Signs Date Vital Result Comment 03/14/2019 1:54pm BP Systolic 121 mmHg BP Diastolic 71 mmHg Height 75 inches 6'3" Weight 310.00 lb BMI (Body Mass Index) 38.7 kg/m2 Heart Rate 82 /min Respiratory Rate 17 /min O2 % BldC Oximetry 93 % Results Description No Information Available Procedures Description No Information Available Encounters Type Date Location Provider Dx Diagnosis [...] so.Patient to receive allergy immunotherapy at the [facility] office.Will continue to have Pulmonology follow patient for his asthma/COPD.Try any over the counter non-sedating antihistamine as needed for breakthrough symptoms.Follow up:6 months, sooner as [id number] Other allergic [id number] Moderate persistent asthma, uncomplicated
[2019-03-27 14:39] VITALS: BP 144/73
== END 2019-03-27 14:37 | disposition home or self-care (01) ==
LOC: ED 12:04
DX: S83.91XA Sprain of unspecified site of right knee, initial encounter (principal); M25.461 Effusion, right knee; Z79.01 Long term (current) use of anticoagulants; Z86.718 Personal history of other venous thrombosis and embolism; J44.9 Chronic obstructive pulmonary disease, unspecified; Z87.891 Personal history of nicotine dependence; X50.1XXA Overexertion from prolonged static or awkward postures, initial encounter; Y92.9 Unspecified place or not applicable
CPT/HCPCS: 99282

== ENCOUNTER 2019-09-15 12:54 | Emergency (ER) | payer BC ==
--- NOTE | 2019-09-15 13:14 | ED ---
HPI Chest Pain - HPI Summary HPI Summary: This patient is a 59 year old male presenting to [facility] with a chief complaint of chest and back pain since one week ago. He states bending over, lifting, exerting, or taking a deep breath aggravates the pain. The patient states he does not have pain when he sleeps. He has a Hx of COPD. He describes the pain as a dull pain and rates it 4/10 in severity. He denies any cardiac disease in his family. - History of Current Complaint Chief Complaint: EDChestPainROMI Time Seen by Provider: 09/15/19 13:05 Hx Obtained From: Patient Onset/Duration: Started Weeks Ago Timing: Intermittent Pain Intensity: 4 Pain Scale Used: 0-10 Numeric Chest Pain Location: Upper Sternal, Right Anterior Chest Pain Radiates To:: Back Character: Dull/Aching - Allergy/Home Medications Allergies/Adverse Reactions: Allergies Allergy/AdvReac Type Severity Reaction Status Date / Time No Known Allergies Allergy Verified 09/15/19 13:16 PMH/Surg Hx/FS Hx/Imm Hx Endocrine/Hematology History: Reports: Hx Anticoagulant Therapy Denies: Hx Diabetes, Hx Thyroid Disease Cardiovascular History: Reports: Hx Angina, Hx Deep Vein Thrombosis Denies: Hx Coronary Artery Disease, Hx Hypercholesterolemia, Hx Hypertension , Hx Myocardial Infarction Respiratory History: Reports: Hx Asthma, Hx Chronic Obstructive Pulmonary Disease (COPD) GI History: Denies: Hx Ulcer - Surgical History Surgery Procedure, Year, and Place: cholecystectomy Infectious Disease History: No Infectious Disease History: Denies: Hx Hepatitis, Hx Human Immunodeficiency Virus (HIV), History Other Infectious Disease, Traveled Outside the [place] in Last 30 Days - Family History Known Family History: Negative: Cardiac Disease Family History: CA - Social History Alcohol Use: None Hx Substance Use: No Substance Use Type: Reports: None Hx Tobacco Use: Yes Smoking Status (MU): Former Smoker Type: Cigarettes Review of Systems Positive: Chest Pain Positive: Other - Back pain All Other Systems Reviewed And Are Negative: Yes Physical Exam - Summary Physical Exam Summary: Appearance: The patient is well-nourished in no acute distress and in no acute pain. Skin: The skin is warm and dry, and skin color reflects adequate perfusion. HEENT: The head is normocephalic and atraumatic. The pupils are equal and reactive. The conjunctivae are clear and without drainage. Nares are patent and without drainage. Mouth reveals moist mucous membranes, and the throat is without erythema and exudate. The external ears are intact. The ear canals are patent and without drainage. The tympanic membranes are intact. Neck: The neck is supple with full range of motion and non-tender. There are no carotid bruits. There is no neck vein distension. Respiratory: Chest is non-tender. Lungs are clear to auscultation and breath sounds are symmetrical and equal. Cardiovascular: Heart is regular rate and rhythm. There is no murmur or rub auscultated. Pulses are symmetrical and equal. Abdomen: The abdomen is soft and non-tender. There are normal bowel sounds heard in all four quadrants and there is no organomegaly palpated. Musculoskeletal: There is no back tenderness noted. Extremities are non-tender with full range of motion. There is good capillary refill. There is peripheral edema. Neurological: Patient is alert and oriented to person, place and time. The patient has symmetrical motor strength in all four extremities. Cranial nerves are grossly intact. Deep tendon reflexes are symmetrical and equal in all four extremities. Psychiatric: The patient has an appropriate affect and does not exhibit any anxiety or depression. Triage Information Reviewed: Yes Vital Signs On Initial Exam: Initial Vitals Temp Pulse Resp BP Pulse Ox 98.3 F 103 15 146/76 94 09/15/19 13:00 09/15/19 13:00 09/15/19 13:00 09/15/19 13:00 09/15/19 13:00 Vital Signs Reviewed: Yes Procedures - Sedation Patient Received Moderate/Deep Sedation with Procedure: No Diagnostics - Vital Signs Vital Signs Temp Pulse Resp BP Pulse Ox 09/15/19 13:00 98.3 F 103 15 146/76 94 - Laboratory Result Diagrams: 09/15/19 13:28 09/15/19 13:28 Lab Statement: Any lab studies that have been ordered have been reviewed, and results considered in the medical decision making process. - Radiology CXR Radiology Interpretation Completed By: Radiologist Summary of Radiographic Findings: No radiographic evidence for acute cardiopulmonary abnormality on this portable chest x-ray. ED Physician has reviewed this report. Chest Pain Course/Dx - Course Course Of Treatment: Mr. Glasgow presented with about a day of atypical chest pain. He was nontoxic in appearance is stable vitals and his heart score was 1. EKG, chest x-ray and labs were all unremarkable including a delayed troponin. I recommended follow-up with his PCP - Diagnoses Provider Diagnoses: Chest pain Discharge ED - Sign-Out/Discharge Documenting (check all that apply): Patient Departure - Discharge - Discharge Plan Condition: Stable Disposition: HOME Patient Education Materials: Chest Pain (ED) Referrals: Pepe Delarosa MD [Primary Care Provider] - - Billing Disposition and Condition Condition: STABLE Disposition: Home - Attestation Statements Document Initiated by Remy: Yes Documenting Scribe: Pepe Lawrence Provider For Whom Remy is Documenting (Include Credential): Fantasma Linton MD Scribe Attestation: Pepe Topete, scribed for Fantasma Linton MD on 09/15/19 at 2031. Scribe Documentation Reviewed: Yes Provider Attestation: The documentation as recorded by the Pepe arroyo accurately reflects the service I personally performed and the decisions made by me, Fantasma Linton MD Status of Scribe Document: Viewed
[2019-09-15 13:35] LABS: ABS Basophils 0.1 10^3/ul (0-0.2); ABS Eosinophils 0.2 10^3/ul (0-0.6); ABS Monocytes 0.5 10^3/ul (0-0.8); Eosinophil % 3.4 %; Hematocrit 45 % (42-52); Hemoglobin 15.6 g/dL (14.0-18.0); Lymphocyte % 14.3 %; Mean Corpuscular HGB Conc 35 g/dL (31-36); Mean Corpuscular Hemoglobin 32 pg (27-31); Mean Corpuscular Volume 90 fL (80-94); Platelet Count 195 10^3/uL (150-450); Red Blood Count 4.95 10^6 /uL (4.18-5.48); Red Cell Distribution Width 14 % (10-15); White Blood Count 6.8 10^3/uL (3.5-10.8)
[2019-09-15 13:54] LABS: Albumin 3.9 g/dL (3.2-5.2); Albumin/Globulin Ratio 1.6 (1-3); BUN/Creatinine Ratio 14.4 (8-20); EGFR African American 88.4 (>60); EGFR Non-African American 73.1 (>60); Globulin 2.5 g/dL (2-4); Potassium 4.2 mmol/L (3.5-5.0); Total Bilirubin 0.6 mg/dL (0.2-1.0); Total Protein 6.4 g/dL (6.4-8.9)
[2019-09-15 13:55] LABS: Troponin I 0.01 ng/mL (<0.04)
[2019-09-15 17:38] VITALS: BP 140/78
== END 2019-09-15 17:37 | disposition home or self-care (01) ==
LOC: ED 12:54
DX: R07.89 Other chest pain (principal); M54.9 Dorsalgia, unspecified; Z79.01 Long term (current) use of anticoagulants; Z86.718 Personal history of other venous thrombosis and embolism; J44.9 Chronic obstructive pulmonary disease, unspecified; Z90.49 Acquired absence of other specified parts of digestive tract; Z87.891 Personal history of nicotine dependence
CPT/HCPCS: 36415; 71045; 80053; 83605; 84484; 85025; 93005; 99283

== ENCOUNTER 2019-11-17 11:20 | Emergency (ER) | payer BC ==
[2019-11-17 11:35] VITALS: BP 143/79
[2019-11-17 11:48] LABS: Influenza A Molecular POSITIVE (Negative)
--- NOTE | 2019-11-17 12:12 | UC ---
FLU HPI - HPI Summary HPI Summary: Nurse's note: "Short of breath, cough, started yesterday. Body aches." Elevated temperature; tachycardic. Slight HTN. Pulse ox=91. Hx positive for COPD. - History of Current Complaint Chief Complaint: UCRespiratory Stated Complaint: COPD COUGH CONGESTION Time Seen by Provider: 11/17/19 11:36 Hx Obtained From: Patient Onset/Duration: Gradual Onset Severity Currently: Moderate Severity Initially: Moderate Pain Intensity: 0 Associated Signs & Symptoms: Positive: Myalgia, Cough. 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 Lives: With Family Alcohol Use: None Substance Use Type: None Smoking Status (MU): Former Smoker Type: Cigarettes When Did the Patient Quit Smoking/Using Tobacco: 16 yrs Household Exposure Type: Cigarettes Review of Systems All Other Systems Reviewed And Are Negative: Yes Constitutional: Negative: Fever Skin: Positive: Negative Respiratory: Positive: Shortness Of Breath, Cough Cardiovascular: Positive: Negative Gastrointestinal: Positive: Negative Genitourinary: Positive: Negative Is Patient Immunocompromised?: No Physical Exam - Summary Physical Exam Summary: Appearance: The patient is well-appearing, is in no pain or distress, and is well-nourished. Eyes: Conjunctiva are clear. Pupils are equal and reactive to light and accommodation. Extra ocular muscle movement is intact. ENT: The hearing is grossly normal, the pharynx is normal, and the TMs are normal. There is no muffled or hoarse voice. No stridor. Neck: The neck is supple and there is no lymphadenopathy. Respiratory: The chest is non-tender to palpation and without crepitus. Diffuse rhonchi with scattered wheezes; no respiratory distress. No wheezes, rales or rhonchi. Cardiovascular: Heart sounds reveal a regular rate and rhythm. There are no clicks, rubs or murmurs. There are no carotid bruits or thrills. Circulation is grossly intact. Abdomen: The abdomen is soft and nontender. There is no organomegaly. Bowel sounds are present and within normal limits. No point tenderness at McBurneys point. No CVA tenderness. Musculoskeletal: Strength is intact. The patient moves all extremities. Neurological: The patient is alert. Motor and sensory are examination grossly intact. Speech is normal. Psychological: The patient displays age appropriate behavior, and is conversant. GCS=15. Skin: Negative for rashes. Triage Information Reviewed: Yes Vital Signs: Initial Vital Signs Temp 101.7 F 11/17/19 11:31 Pulse 114 11/17/19 11:31 Resp 44 11/17/19 11:31 BP 143/79 11/17/19 11:31 Pulse Ox 91 11/17/19 11:31 Vital Signs Reviewed: No Flu Course/Dx - Course Course Of Treatment: 59-year-old male with a long-standing history of COPD, comes to the urgent care center with increasing shortness of breath and cough. His condition worsened yesterday. The patient is on chronic intermittent bronchodilators, but has run out. yesterday the patient was febrile. Physical exam shows scattered rhonchi and wheezes. The patient can speakcomplete sentences and is stable. There is no evidence of pneumonia at this time. Rapid influenza is positive. The patient will be treated for both influenza and exacerbation of COPD. he was given Tamiflu for 5 days as well as albuterol and a spacerand prednisone 60 mg a day for 3 days. Patient knows to follow up or go to the emergency department for any worsening symptoms including increasing shortness of breath, chest pain or continued elevated temperature. - Differential Dx/Diagnosis Differential Diagnosis/HQI/PQRI: Bronchitis, Influenza, Pneumonia Provider Diagnosis: Influenza, COPD exacerbation Discharge ED - Sign-Out/Discharge Documenting (check all that apply): Patient Departure All imaging exams completed and their final reports reviewed: No Studies - Discharge Plan Condition: Stable Disposition: HOME Prescriptions: Albuterol HFA INHALER* [Ventolin HFA Inhaler*] 1 - 2 puff INH Q4H #1 mdi MDD 8 Inhaler, Assist Devices [Aerochamber Mv] 1 mis XX Q6HR #1 mis Oseltamivir CAP* [Tamiflu CAP*] 75 mg PO BID 5 Days #10 cap MDD 2 predniSONE 20 mg TAB [Deltasone 20 MG TAB*] 20 mg PO TID #9 tab MDD 3 Patient Education Materials: Influenza (DC) Referrals: Pepe Delarosa MD [Primary Care Provider] - Additional Instructions: WE DISCUSSED: PLEASE SEEK CARE AT THE EMERGENCY DEPARTMENT IF SYMPTOMS WORSEN OR IF NEW SYMPTOMS DEVELOP. FOLLOW UP WITH YOUR PRIMARY CARE PHYSICIAN IF CONDITION CONTINUES BEYOND 3 DAYS WITHOUT IMPROVEMENT. YOUR DIAGNOSIS IS:influenza;you also have exacerbation of your COPD with bronchospasm. YOUR PRESCRIPTION RECOMMENDATION IS: Tamiflu, one pill twice a day for 5 days; albuterol inhaler and spacer, 2 puffs 3-4 times a day for cough and wheezing for 3-5 days; prednisone, 20 mg, one pill 3 times a day for the next 3 days. OTHER INSTRUCTIONS: Hypertension Discharge Instructions: Your blood pressure reading today was slightly elevated, indicating HYPERTENSION. Follow-up with your primary care provider within 4 weeks for blood pressure check and appropriate recommendations and treatment, as needed. FOR PAIN AND/OR SLEEP: For pain: Ibuprofen (Motrin and other brand names) 400-600mg PLUS acetaminophen (Tylenol and other brand names) 500mg - 1000mg every 8 hours. STAND UNDER SHOWER STREAM TO LOOSEN SECRETIONS. STAY AWAY FROM ANY SMOKE OR IRRITANTS. LOTS OF TEA or WARM FLUIDS. Go to the emergency department if you have any increasing shortness of breath, chest pain or elevated temperature in two days. - Billing Disposition and Condition Condition: STABLE Disposition: Home
== END 2019-11-17 12:31 | disposition home or self-care (01) ==
LOC: UCEAST 11:20
DX: J44.1 Chronic obstructive pulmonary disease with (acute) exacerbation (principal); J11.1 Influenza due to unidentified influenza virus with other respiratory manifestations; Z87.891 Personal history of nicotine dependence
CPT/HCPCS: 99212; G0463